=== PATIENT | female | born 1970 | race Two or more races ===

== ENCOUNTER 2024-05-27 11:32 | Emergency (ER) | payer MEDICAID, SELFPAY ==
[2024-05-27 11:35] VITALS: PULSE 100; RESP 16; O2SAT 100
[2024-05-27 12:04] VITALS: BP 163/102; PULSE 108; RESP 19; TEMP 36.7; O2SAT 98; BMI 25.1
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
[2024-05-27] MEDS: LORazepam 0.5 MG TABLET 1 MG PO (12:35)
[2024-05-27 14:01] VITALS: BP 146/88; PULSE 98; RESP 19; TEMP 36.6; O2SAT 97
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
[2024-05-27 16:01] VITALS: BP 138/89; PULSE 88; RESP 18; TEMP 37; O2SAT 98
== END 2024-05-27 16:01 | disposition home or self-care (01) ==
PROVIDERS: Emergency Provider Emergency Medicine; PCP Physician Assistant
DX: S10.93XA Contusion of unspecified part of neck, initial encounter (principal); S20.212A Contusion of left front wall of thorax, initial encounter; S40.011A Contusion of right shoulder, initial encounter; V89.2XXA Person injured in unspecified motor-vehicle accident, traffic, initial encounter
CPT/HCPCS: 71046; 72125; 73030; 99284; A9270

== ENCOUNTER 2025-04-13 09:43 | Emergency (ER) | payer MEDICAID, SELFPAY ==
--- NOTE | 2025-04-13 | XR_ITS ---
Examination: MRI brain without intravenous contrast. Date and time of exam: April 13, 2025, 1330 hours INDICATIONS: Onset generalized head pain left-sided facial numbness drooping eyelid noticed beginning 2 days ago Technique: Multiple axial and sagittal images of the brain obtained. Siemens high-resolution 1.5 Kira short bore scanners utilized. Sagittal sections, T1-weighted, TR 500, TE 14, are performed. Axial sections proton-density and T2-weighted have been obtained. Inversion recovery axial images, TR 9, 260, TE 111, TI 2500. Diffusion weighted images, axial sections, TR 4800, TE 128, B value 1000 Axial sections, ADC map, TR 4800, TE 128 Findings: Enlargement of the sella turcica is not present. The optic chiasm and infundibular are not remarkable. Prepontine and interpeduncular cisterns are not enlarged. There is no localized enlargement of the medulla or rhys. Fourth ventricle and cerebellar tonsils appear normal in position. No subacute area of hemorrhage density is seen. Mass in the cerebellopontine angle region is not evident. Globes symmetrical. Orbital musculature including medial lateral rectus muscles do not exhibit abnormality. Diffusion-weighted images demonstrate no focus of restricted diffusion. Increased white matter signal evident, punctate foci of increased signal in the left and right frontal white matter FLAIR image 14 Mass effect upon the ventricular system is not identified. Impression: Punctate foci of increased signal in the left and right frontal white matter, demyelinating disease pattern
[2025-04-13 09:53] VITALS: BP 169/95; PULSE 93; RESP 19; TEMP 36.7; O2SAT 97; BMI 25.7
--- NOTE | 2025-04-13 10:00 | XR_ITS ---
Examination: CT brain head without contrast. 2-D sagittal coronal reconstructions Date and time of exam: April 13, 2025, 10:11 a.m., comparison October 09, 2022 INDICATIONS: Onset generalized head pain left-sided facial numbness today CTDI: vol (mGy): 45.8 DLP: (mGycm): 997 Technique: Multiple CT axial sections of the brain have been obtained, 5 mm slice thickness. Contrast has not been administered. 2-D sagittal, coronal reconstructions have been obtained Low dose protocols were performed. One or more of the following dose reduction techniques were used; automated exposure control, adjustment of the mA and/or KV according to patient size, use of iterative reconstruction technique. Findings: No significant ventricular enlargement. Intra-axial or extra-axial hemorrhage density is not seen. No mass effect or midline shift Basal cisterns are not remarkable. Fourth ventricle is midline. Cranial vault intact. Impression: Negative for acute hemorrhage, mass effect or midline shift As clinically warranted, brain MRI follow-up would best assess for demyelinating disease
--- NOTE | 2025-04-13 10:01 | PD.EDRME ---
Rapid Medical Screening Exam RME Arrival date/time: 04/13/25 09:43 54-year-old female presents to the emergency department today for complaints of headache and left-sided facial paralysis symptom onset 2 days ago Chief Complaint: General Adult/Misc Complain Vital signs: Vital Signs Temperature 98.0 F 04/13/25 09:53 Pulse Rate 93 04/13/25 09:53 Respiratory Rate 19 04/13/25 09:53 Blood Pressure 169/95 H 04/13/25 09:53 Pulse Oximetry (%) 97 04/13/25 09:53 Oxygen Delivery Method Room Air 04/13/25 09:53
[2025-04-13 10:28] LABS: Basophils # (Auto) 0.1 Thou/mm3 (0.0-0.2); Basophils % (Auto) 1 % (0-2.5); Eosinophils # (Auto) 0.2 Thou/mm3 (0.0-0.5); Eosinophils % (Auto) 2 % (0-10); Hematocrit 42.8 % (36.0-46.0); Hemoglobin 14.4 g/dL (12.0-16.0); Immature Granulocytes Auto 0.03 Thou/mm3 (0.00-0.00); Lymphocytes # (Auto) 2.5 Thou/mm3 (1.0-4.8); Lymphocytes % (Auto) 34 % (10-50); Mean Corpuscular HGB Conc 33.6 g/dl (31.0-37.0); Mean Corpuscular Hemoglobin 31.4 pg (25.0-35.0); Mean Corpuscular Volume 93 fL (80-100); Monocytes # (Auto) 0.4 Thou/mm3 (0.0-0.8); Monocytes % (Auto) 6 % (0-12); Neutrophils # (Auto) 4.1 Thou/mm3 (1.8-7.7); Neutrophils % (Auto) 57 % (37-80); Nucleated Red Blood Cell # 0.00 Thou/mm3 (0.00-0.00); Nucleated Red Blood Cell % 0 /100 WBC (0); Platelet Count 201 Thou/mm3 (140-440); RDW Standard Deviation 42.7 fL (36.4-46.3); Red Blood Count 4.58 Miln/mm3 (4.00-5.20); White Blood Count 7.3 Thou/mm3 (3.6-11.0)
[2025-04-13 10:43] LABS: Alanine Aminotransferase 19 U/L (10-49); Albumin, Serum 5.1 gm/dL (3.5-5.0); Albumin/Globulin Ratio 2.0 (1.2-2.2); Alkaline Phosphatase 98 U/L (46-116); Anion Gap 11 (7-16); Aspartate Amino Transferase 22 U/L (0-34); BUN/Creatinine Ratio 14 Ratio (12-20); Bilirubin,Total 0.8 mg/dL (0.3-1.2); Blood Urea Nitrogen 11 mg/dL (9-23); Calcium 9.7 mg/dL (8.3-10.6); Calcium (Corrected) 9.7 mg/dL (8.5-10.1); Carbon Dioxide 26.9 mMol/L (20.0-31.0); Chloride 103 mMol/L (98-107); Creatinine (Component) 0.8 mg/dL (0.6-1.3); Estimated Creatinine Clearance 64.2 mL/min (>60); Globulin 2.6 gm/dL (2.3-3.5); Glucose 204 mg/dL (74-106); Osmolality,Calculated 286 (275-295); Potassium 3.5 mMol/L (3.4-5.1); Sodium 141 mMol/L (136-145); Total Protein 7.7 gm/dL (5.7-8.2); eGFR > 60 See Note
--- NOTE | 2025-04-13 12:19 | PD.EDADULT ---
ED General RME/HPI General Chief complaint: General Adult/Misc Complain Stated complaint: LEFT SIDED FACIAL DROOP/ NUMBNESS SINCE HS Time Seen by Provider: 04/13/25 12:04 Arrival date/time: 04/13/25 09:43 CC: Right sided facial droop and numbness and left drooping eyelid HPI onset 2 days ago denies fever chills shortness of breath difficulty breathing no nausea or vomiting no other focal deficits. RME / HPI RME / HPI narrative: 04/13/25 09:43 54-year-old female presents to the emergency department today for complaints of headache and left-sided facial paralysis symptom onset 2 days ago Related Data Home Medications ?Medication ?Instructions ?Recorded ?Confirmed amlodipine 10 mg tablet 10 mg PO QDAY 10/10/22 10/10/22 [id number] 250 1 tab PO Q12H PRN Pain 10/10/22 10/10/22 mg-250 mg-65 mg tablet (Excedrin Extra Strength) famotidine 40 mg tablet 40 mg PO HS 10/10/22 10/10/22 fluticasone propionate 230 2 puff inhalation BID 10/10/22 10/10/22 mcg-salmeterol 21 mcg/actuation HFA inhaler (Advair HFA) gemfibrozil 600 mg tablet 600 mg PO BID 10/10/22 10/10/22 losartan 25 mg tablet 25 mg PO QDAY 10/10/22 10/10/22 metformin 1,000 mg tablet 1,000 mg PO QDAY 10/10/22 10/10/22 omeprazole 40 mg capsule,delayed 40 mg PO QDAY 10/10/22 10/10/22 release paroxetine HCl 20 mg tablet 20 mg PO QDAY 10/10/22 10/10/22 tiotropium bromide 1.25 2 puff inhalation QDAY 10/10/22 10/10/22 mcg/actuation mist for inhalation (Spiriva Respimat) Previous Rx's ?Medication ?Instructions ?Recorded lorazepam 1 mg tablet (Ativan) 1 mg PO BID #6 tabs 10/08/17 acyclovir 400 mg tablet 400 mg PO TID #15 tabs 04/13/25 prednisone 20 mg tablet See Taper PO BID 3 days #6 tabs 04/13/25 Allergies Allergy/AdvReac Type Severity Reaction Status Date / Time No Known Allergies Allergy Verified 04/13/25 09:49 Review of Systems Review of Systems Narrative Review of Systems: GEN: No fever, no chills, no weight loss EYES: No discharge, no visual changes, no pain HEENT: No ear pain, no congestion, no sore throat PULM: No shortness of breath, no cough, no congestion CV: No chest pain, no dyspnea on exertion, no palpitations GI: No nausea, no vomiting, no diarrhea, no pain, no constipation : No frequency, no urgency, no dysuria MUSC/SKEL: No joint pain, no back pain SKIN: No rash PSYCH: No hallucinations, no depression HEME/LYMPH: No easy bleeding or bruising tendencies NEURO: no headache, right sided facial numbness and droop, left upper eyelid droop. ED Exam Narrative Physical exam: [General: Not in any acute distress Head normocephalic HEENT: Eyes: Pupils are PERRLA EOMs are intact left-sided ptosis right sided mouth pink moist membranes, no rhinorrhea otorrhea all of the substance of HEENT are within acceptable limits Neck is supple nontender Chest equal chest rise nontender to palpation Respiratory: Clear to auscultation no wheezes crackles or rubs CV: Rate rhythm is regular no murmurs rubs or clicks Abdomen is soft nontender no masses positive bowel sounds all 4 quadrants Back: No CVA tenderness no spinous process tenderness from cervical spine thoracic and lumbar spine Skin: Intact no petechiae rash induration ulceration or crepitus Extremities: Moving all extremity against resistance cap refill less than 2 seconds neurosensory intact Neuro: Awake alert oriented x3 Glascow coma 15 no focal deficits] Course Quality Measures none Orders Category Date Time Status MRI Screening NOW Care 04/13/25 12:[address] head/brain wo con Stat Exams 04/13/25 10:00 Completed MR head/brain wo con Stat Exams 04/13/25 Completed CBC Stat Lab 04/13/25 10:12 Completed Comprehensive Metabolic Panel Stat Lab 04/13/25 10:12 Completed Vital Signs Vital signs: Vital Signs Temperature 98.0 F 04/13/25 09:53 Pulse Rate 93 04/13/25 09:53 Respiratory Rate 19 04/13/25 09:53 Blood Pressure 169/95 H 04/13/25 09:53 Pulse Oximetry (%) 97 04/13/25 09:53 Oxygen Delivery Method Room Air 04/13/25 09:53 Discharge Plan Plan Patient Disposition: HOME (Self Care) Patient condition on transfer: Stable Prescriptions/Referrals Prescriptions/Med Rec: New acyclovir 400 mg tablet 400 mg PO TID Qty: 15 0RF prednisone 20 mg tablet See Taper PO BID 3 Days Qty: 6 0RF Taper: Prednisone Taper 20 mg DAILY for 2 Days and 0 Hour 10 mg DAILY for 2 Days and 0 Hour 5 mg DAILY for 7 Days and 0 Hour No Action lorazepam [Ativan] 1 mg tablet 1 mg PO BID Qty: 6 0RF gemfibrozil 600 mg Tablet 600 mg PO BID famotidine 40 mg Tablet 40 mg PO HS omeprazole 40 mg Capsule,Delayed Release(Dr/Ec) 40 mg PO QDAY amlodipine 10 mg Tablet 10 mg PO QDAY paroxetine HCl 20 mg Tablet 20 mg PO QDAY metformin 1,000 mg Tablet 1,000 mg PO QDAY losartan 25 mg Tablet 25 mg PO QDAY Excedrin Extra Strength 250-250-65 mg Tablet 1 tab PO Q12H PRN (Reason: Pain) fluticasone propion-salmeterol [Advair HFA] 230-21 mcg/actuation Hfa Aerosol Inhaler 2 puff INHALATION BID Spiriva Respimat 1.25 mcg/actuation Mist 2 puff INHALATION QDAY Referrals: Vinnie Lundberg PA-C [Primary Care Provider] - In 1 week Problem List Clinical Impression: Pearson's palsy Patient/Caregiver Discharge Instructions Education Materials: ED Pearson's Palsy Additional Instructions: Take the medications as prescribed follow-up with your primary care doctor there was no acute finding on your CT or MRI. Print Language: Turkish Stand Alone Forms: Kimberly Award Info., Patient Portal Info Letter, Work/School Release PA/[employer] Supervising Physician PA/[employer] Supervising Physician: Uday Childress ENP MDM Clinical Information Provided by: patient Medical Records reviewed [facility] Meds/Rx considered, not ordered None Labs/Rad/Tests considered, not ordered None Chronic Illness/Social Conditions Explain: Diabetes hypertension EKG EKG not done Labs Labs: interpreted by id Lab(s) Interpretation(s): CBC shows no acute leukocytosis anemia thrombocytopenia CMP shows elevated blood glucose level of 204 no other electrolyte imbalances renal impairment transaminitis or T. bili elevation. Imaging Imaging interpretation: interpreted by me Imaging Interpretation(s): Head CT is interpreted by me and read by radiology as negative for any acute finding. MRI is positive for white demyelinating in the frontal lobes both left and right but no other acute finding. Patient will be discharged with Pearson's palsy
[2025-04-13 12:43] VITALS: BP 151/91; PULSE 80; RESP 16; TEMP 36.8; O2SAT 98
[2025-04-13 14:33] VITALS: BP 144/87; PULSE 78; RESP 17; TEMP 36.7; O2SAT 99
[2025-04-13] MEDS: KETOROLAC INJ 30 MG/ML VIAL 15 MG IM (15:10)
== END 2025-04-13 15:13 | disposition home or self-care (01) ==
PROVIDERS: Nurse Practitioner Primary Care; Emergency Provider Family Medicine; PCP Physician Assistant
DX: G51.0 Bell's palsy (principal)
CPT/HCPCS: 36415; 70450; 70551; 80053; 85025; 96372; 99284; J1885